=== PATIENT | female | born 1990 | race Caucasian/White ===

== ENCOUNTER 2017-12-10 07:22 | Inpatient (IN) | payer BC ==
--- NOTE | 2017-12-10 10:29 | HP ---
General Information - General Information Maternal Age: 27 Grav: 1 Para: 0 SAB: 0 IEA: 0 Estimated Due Date: 12/09/17 Determined By: LMP Maternal Blood Type and Rh: O Negative - Results this Serology/RPR Result: Non-Reactive Rubella Result: Immune HBsAg Result: Negative HIV Result: Negative GBS Culture Result: Negative Past Medical History Pertinent Past Medical History: See Records - depression/anxiety Pertinent Past Surgical History: None Pertinent Family History: Non-Contributory - Antepartal Records Antepartal Records: Reviewed, Uncomplicated Review of Systems Constitutional: Comfortable CV Complaint: No Respiratory: Shortness of Breath: No Gastrointestinal: No Nausea/Vomiting, Normal Bowel Movement Genitourinary: Leaking Fluid, No Dysuria, No Bleeding Musculoskeletal: Contractions - mild q5 Neurological: No Headache Movement: Normal Exam Allergies/Adverse Reactions: Allergies No Known Allergies Allergy (Verified 12/10/17 07:52) - Measurements Height: 5 ft 2 in Weight: 212 lb Weight in lbs: [phone] Body Mass Index (BMI): 38.7 Pre- Weight: 165 lb Weight Gained This : 47 lbs and 0 ozs - Exam Breast: Breast Exam Deferred Extremities: No Edema Heart: Normal Rhythm/Heart Sounds HEENT: No Significant Findings Rectal: Rectal Exam Deferred - Abdominal Exam Abdomen Exam: Non-Tender, Fundal Height Consistent with Dates - Ultrasound/Biophysical Profile Ultrasound Status: Not Done Targeted Exam Findings Presenting Part: Vertex Membrane Status: SROM Amniotic Fluid Evaluation: Gross Rupture, Clear Bleeding/Discharge: None
[2017-12-10 11:30] LABS: ABS Basophils 0 10^3/ul (0-0.2); ABS Eosinophils 0 10^3/ul (0-0.6); ABS Lymphocytes 1.4 10^3/ul (1.0-4.8); ABS Monocytes 0.5 10^3/ul (0-0.8); ABS Neutrophils 8.4 10^3/ul (1.5-7.7); ABS Nucleated RBC 0 10^3/ul; Eosinophil % 0.2 % (0-6); Hematocrit 38 % (35-47); Lymphocyte % 13.3 % (25-47); Mean Corpuscular HGB Conc 34 g/dl (31-36); Mean Corpuscular Hemoglobin 31 pg (27-31); Mean Corpuscular Volume 90 fL (80-97); Mean Platelet Volume 10.8 um3 (7.4-10.4); Nucleated Red Blood Cells % 0.1; Platelet Count 145 10^3/ul (150-450); Red Blood Count 4.24 10^6/ul (4.00-5.40); Red Cell Distribution Width 15 % (10.5-15); White Blood Count 10.4 10^3/ul (3.5-10.8)
[2017-12-10] MEDS: Oxytocin in LR* 20 UNITS/1,000 ML BAG IVPB SCH (14:31)
[2017-12-10] MEDS ORDERED: OBEPIDURAL* 250 ML EPIDURAL ONE (19:55)
[2017-12-10] MEDS ORDERED: fentaNYL* 50 MCG/ML 2 ML VIAL (100 MCG VIAL) ONE (20:05)
[2017-12-10] MEDS ORDERED: Sodium Citrate/Citric Acid* 15 ML UDC PO PRN (20:48)
[2017-12-10] MEDS ORDERED: Phenylephrine IV* 40 MCG/ML 10 ML SYRINGE IV PUSH PRN ×2 (20:48)
[2017-12-10] MEDS ORDERED: Famotidine TAB* 20 MG PO PRN (20:48)
[2017-12-10] MEDS ORDERED: OBEPIDURAL* 250 ML EPIDURAL SCH (21:00)
[2017-12-11] MEDS: Ondansetron ODT TAB* 4 MG PO PRN ×2 (05:38→21:55)
[2017-12-11] MEDS ORDERED: Lidocaine 1%* 5 ML VIAL ONE (05:48)
[2017-12-11] MEDS: Oxytocin in LR* 20 UNITS/1,000 ML BAG IVPB SCH (16:45)
[2017-12-12] MEDS ORDERED: Misoprostol TAB* 200 MCG PR ONE (05:03)
[2017-12-12] MEDS ORDERED: Glycerin ADULT SUPP PR PRN (05:03)
--- NOTE | 2017-12-12 05:52 | PROCNOTE ---
[facility] OB: Delivery Note - Delivery A Date of : 12/12/17 Time of : 03:51 [place] Weight at : 8 lb 15 oz Score 1 Minute: 8 Score 5 Minutes: 9 Gestational Age in Weeks and Days at Delivery: 40 Weeks and 3 Days Delivery Method: Low Vacuum Extraction, Vaginal Labor: Induced Amniotic Fluid: Clear Estimated Blood Loss: 400 Anesthesia/Analgesia: CEI for Labor Delivered By: Sonia Dennis - Nursery Level of Nursery: Regular/Bedside - Perineum Perineal Injury: Vaginal Laceration, 3rd Degree Extension - partial - Events Delivery Events of Note: Pitocin During Labor, Protracted/Long Labor, Post- Bleeding - Meds Given, Pushed > 3 Hours, ROM > 24 Hours - Additional Delivery Notes Additional Delivery Notes: Pt presented with PROM at 5am on 12/10. She was having irregular contractions but her cervix changed only minimally so eventually she was started on pitocin for labor augmentation. She slowly progressed and received an epidural. At one point this had to be replaced. She continued to progress, though very slowly to anterior lip. The lip easily reduced over the baby's head when she pushed so the pt began pushing. She pushed for over 3hrs and requested vacuum assistance with delivery. Risks were reviewed with the pt and when neonatology arrived the vacuum was attached and the pt continued pushing to bring the head to . The vacuum was removed twice but no pop-offs. The pt then continued to push to deliver the infant's head in MIKE position. Nuchal reduced x1 and a compound posterior hand was delivered with the shoulders and the rest of the body. Another nuchal cord reduced over the body. The baby was placed on mom's abdomen. After 1min the cord was clamped x2 and cut. The placenta delivered with gentle cord traction and fundal massage. 1 [id number] suture was placed to reapproximate the fibers of the rectal sphincter capsule. The second degree tear was then repaired in the usual fashion with 3-0 vicryl rapide. The pt had several gushes of blood during this time and therefore she received 800mcg of cytotec. By the end of the repair the fundus was firm and there was good hemostasis. Mom and baby stable.
[2017-12-12] MEDS: Dibucaine 1% 28.35 GM TUBE PR PRN (06:47)
[2017-12-12] MEDS: Ibuprofen TAB* 600 MG PO PRN ×3 (06:47→19:51)
[2017-12-12] MEDS: Witch Hazel PAD* JAR TOPICAL PRN (06:47)
[2017-12-12] MEDS: Docusate CAP* 100 MG PO SCH ×3 (08:41→19:51)
[2017-12-12] MEDS: Simethicone TAB* 80 MG TAB.CHEW PO SCH ×2 (08:42→12:30)
[2017-12-12 15:58] LABS: Hematocrit 28 % (35-47); Hemoglobin 9.6 g/dl (12.0-16.0); Mean Corpuscular HGB Conc 34 g/dl (31-36); Mean Corpuscular Hemoglobin 31 pg (27-31); Mean Corpuscular Volume 91 fL (80-97); Mean Platelet Volume 10.2 um3 (7.4-10.4); Platelet Count 147 10^3/ul (150-450); Red Blood Count 3.09 10^6/ul (4.00-5.40); Red Cell Distribution Width 16 % (10.5-15); White Blood Count 24.1 10^3/ul (3.5-10.8)
[2017-12-12 16:37] LABS: ABS Basophils 0.1 10^3/ul (0-0.2); ABS Eosinophils 0 10^3/ul (0-0.6); ABS Monocytes 1.6 10^3/ul (0-0.8); ABS Neutrophils 20.4 10^3/ul (1.5-7.7); ABS Nucleated RBC 0 10^3/ul; Eosinophil % 0.1 % (0-6); Lymphocyte % 8.3 % (25-47); Nucleated Red Blood Cells % 0.1
[2017-12-12] MEDS: Ferrous Gluconate TAB* 324 MG TAB PO SCH (20:01)
[2017-12-13] MEDS: Ibuprofen TAB* 600 MG PO PRN ×4 (02:13→20:44)
[2017-12-13] MEDS: Acetaminophen TAB* 325 MG PO PRN ×4 (02:13→17:52)
[2017-12-13 07:11] LABS: ABS Basophils 0.1 10^3/ul (0-0.2); ABS Eosinophils 0.1 10^3/ul (0-0.6); ABS Lymphocytes 2.6 10^3/ul (1.0-4.8); ABS Monocytes 1.2 10^3/ul (0-0.8); ABS Neutrophils 13.3 10^3/ul (1.5-7.7); ABS Nucleated RBC 0 10^3/ul; Eosinophil % 0.6 % (0-6); Hematocrit 27 % (35-47); Hemoglobin 8.9 g/dl (12.0-16.0); Lymphocyte % 14.9 % (25-47); Mean Corpuscular HGB Conc 33 g/dl (31-36); Mean Corpuscular Hemoglobin 30 pg (27-31); Mean Corpuscular Volume 91 fL (80-97); Mean Platelet Volume 10.2 um3 (7.4-10.4); Nucleated Red Blood Cells % 0.1; Platelet Count 147 10^3/ul (150-450); Red Blood Count 2.97 10^6/ul (4.00-5.40); Red Cell Distribution Width 16 % (10.5-15); White Blood Count 17.2 10^3/ul (3.5-10.8)
[2017-12-13] MEDS: Docusate CAP* 100 MG PO SCH ×3 (07:49→20:44)
[2017-12-13] MEDS: Ferrous Gluconate TAB* 324 MG TAB PO SCH ×2 (07:49→20:44)
[2017-12-13] MEDS ORDERED: RHO D Immune Globulin (HUMAN)* 300 MCG = 1,500 I.U. INJ IM ONE (14:01)
--- NOTE | 2017-12-13 20:55 | PTEDU ---
Patient Name: ANTONIA MONIQUE ANTONIA MONIQUE selected video: Follow Me Mum: [facility] to view on 12/13/2017 at 8:54:22 PM [id number]
[2017-12-14] MEDS: Ibuprofen TAB* 600 MG PO PRN ×3 (02:33→15:14)
[2017-12-14] MEDS: Acetaminophen TAB* 325 MG PO PRN ×4 (02:33→19:02)
[2017-12-14] MEDS: Docusate CAP* 100 MG PO SCH ×2 (08:05→15:14)
[2017-12-14] MEDS: Ferrous Gluconate TAB* 324 MG TAB PO SCH (08:06)
[2017-12-14 08:09] VITALS: BP 127/77
[2017-12-14] MEDS: Witch Hazel PAD* JAR TOPICAL PRN (19:02)
[2017-12-14] MEDS: Dibucaine 1% 28.35 GM TUBE PR PRN (19:02)
== END 2017-12-14 18:45 | disposition home or self-care (01) | DRG 542 ==
LOC: MCHOBOUT 07:22 → MCHOB 08:33
PROVIDERS: ADMIT Obstetrics & Gynecology; ATTEND Obstetrics & Gynecology
PROC: 10D07Z6 Extraction of Products of Conception, Vacuum, Via Natural or Artificial Opening (ICD-10-PCS; principal; 2017-12-12)
PROC: 0DQR0ZZ Repair Anal Sphincter, Open Approach (ICD-10-PCS; 2017-12-12)
DX: O48.0 Post-term pregnancy (principal); O70.20 Third degree perineal laceration during delivery, unspecified; O99.344 Other mental disorders complicating childbirth; F41.8 Other specified anxiety disorders; O69.81X0 Labor and delivery complicated by cord around neck, without compression, not applicable or unspecified; O32.6XX0 Maternal care for compound presentation, not applicable or unspecified; O90.81 Anemia of the puerperium; D64.9 Anemia, unspecified; Z3A.40 40 weeks gestation of pregnancy; Z37.0 Single live birth
CPT/HCPCS: 36415; 85025; 85461; 86850; 86900; 86901; A9270-GY; J2790; J3010

== ENCOUNTER 2021-01-07 23:06 | Inpatient (IN) ==
[2021-01-08 00:27] LABS: Urine Benzodiazepine Screen None Detected (None Detect); Urine Opiates Screen None Detected (None Detect)
[2021-01-08] MEDS ORDERED: Penicillin G Potassium IV 5,000,000 UNITS in NS 0.9% 100 ml BAG 100 ML IVPB ONE (00:42)
[2021-01-08] MEDS ORDERED: Buffered Lidocaine 1% SYRIN 1 ml INTRADERM ONE (00:42)
[2021-01-08] MEDS ORDERED: Lactated Ringers 1000 ml BAG 1,000 ML IV ONE ×2 (00:42→08:31)
[2021-01-08] MEDS ORDERED: Oxytocin in LR 20 UNITS/1,000 ML BAG IVPB SCH (01:00)
[2021-01-08] MEDS: Lactated Ringers 1000 ml BAG 1,000 ML IV SCH ×2 (01:08→07:48)
[2021-01-08 01:20] LABS: ABS Lymphocytes 1.4 10^3/ul (1.0-4.8); ABS Monocytes 0.6 10^3/ul (0-0.8); ABS Neutrophils 5.1 10^3/ul (1.5-7.7); Eosinophil % 0.3 %; Hematocrit 35 % (35-47); Hemoglobin 11.9 g/dL (12.0-16.0); Lymphocyte % 18.9 %; Mean Corpuscular HGB Conc 34 g/dL (31-36); Mean Corpuscular Hemoglobin 32 pg (27-31); Mean Corpuscular Volume 92 fL (80-97); Mean Platelet Volume 10.8 fL (7.4-10.4); Platelet Count 142 10^3/uL (150-450); Red Blood Count 3.78 10^6 /uL (3.70-4.87); Red Cell Distribution Width 15 % (10-15); White Blood Count 7.2 10^3/uL (3.5-10.8)
[2021-01-08 01:47] LABS: Rapid COVID-19 Molecular Undetected (Undetected)
[2021-01-08] MEDS: Penicillin G Potassium IV 3,000,000 UNITS in NS 0.9% 100 ml BAG 100 ML IVPB SCH ×3 (05:08→13:15)
[2021-01-08] MEDS ORDERED: Ondansetron 4 mg VIAL 2 MG/ML 2 ml VIAL IV PRN ×2 (06:13→14:42)
[2021-01-08] MEDS ORDERED: OBEPIDURAL 250 ML EPIDURAL ONE (07:24)
[2021-01-08] MEDS ORDERED: Lactated Ringers 1000 ml BAG 500 ML IV PRN ×2 (08:31)
[2021-01-08] MEDS ORDERED: Phenylephrine 40 mcg/mL 10mL (400mcg) SYRINGE IV PUSH PRN ×2 (08:31)
[2021-01-08] MEDS ORDERED: Sodium Citrate/Citric Acid LIQ 15 ML UDC PO PRN (08:31)
[2021-01-08] MEDS ORDERED: Bupivacaine 0.25% SDV PF 10 ML VIAL INJ ONE (08:58)
[2021-01-08] MEDS ORDERED: Lactated Ringers 1000 ml BAG 1,000 ML IV SCH ×2 (09:00→16:00)
[2021-01-08] MEDS ORDERED: OBEPIDURAL 250 ML EPIDURAL SCH (09:00)
[2021-01-08 09:37] LABS: Urine Appearance Clear; Urine Bilirubin Negative (Negative); Urine Blood 1+ (Negative); Urine Color Straw; Urine Glucose Negative (Negative); Urine Ketones Negative (Negative); Urine Nitrite Negative (Negative); Urine Protein Negative (Negative); Urine Specific Gravity 1.005 (1.002-1.030); Urine Urobilinogen Negative (Negative)
[2021-01-08 09:40] LABS: Urine Bacteria Absent (Absent); Urine Red Blood Cell Absent (Absent); Urine Squamous Epithelial Cell Present (Absent); Urine White Blood Cell Absent (Absent)
[2021-01-08] MEDS ORDERED: ceFOXitin 2 GM IVPREMIX 2 GM/50 ML BAG IVPB ONE (10:58)
[2021-01-08] MEDS ORDERED: Chloroprocaine 3% 20 ml VIAL ONE (12:32)
[2021-01-08] MEDS ORDERED: Oxytocin 10 UNITS/ML 1 ML VIAL ONE (12:32)
[2021-01-08] MEDS ORDERED: Bupivacaine 0.5% SDV PF 30ML VIAL ONE (13:15)
[2021-01-08] MEDS ORDERED: Dexamethasone IV 4 MG/ML VIAL 1 ml VIAL ONE (14:02)
[2021-01-08] MEDS ORDERED: Ondansetron 4 mg VIAL 2 MG/ML 2 ml VIAL ONE ×2 (14:02→14:18)
[2021-01-08] MEDS ORDERED: diPHENhydraMINE IV 50 MG/ML 1 ml VIAL (BENADRYL) ONE (14:18)
[2021-01-08] MEDS ORDERED: Morphine PF AMP (0.5MG/ML) 5 MG/10 ML AMP ONE (14:27)
[2021-01-08] MEDS ORDERED: Naloxone 0.4 mg VIAL 0.4 mg/ml 1 ml VIAL IV PRN ×2 (14:38→14:42)
[2021-01-08] MEDS ORDERED: Acetaminophen IV 1 GM/100ML 100 ML IV ONE (14:38)
[2021-01-08] MEDS ORDERED: Naloxone 4 mg VIAL (10 ml) 2 MG in NS 0.9% 250 ml 250 ML IV PRN (14:42)
[2021-01-08] MEDS ORDERED: diPHENhydraMINE IV 50 MG/ML 1 ml VIAL (BENADRYL) IV PRN (14:42)
[2021-01-08] MEDS ORDERED: DiMENhydriNATE IV 50 mg/ml 1 ml VIAL IV PUSH PRN (14:42)
[2021-01-08] MEDS ORDERED: Scopolamine PATCH Remove NOTE PATCH OFF PRN (14:42)
[2021-01-08] MEDS ORDERED: Witch Hazel PAD JAR TOPICAL PRN (15:06)
[2021-01-08] MEDS ORDERED: Glycerin ADULT 2.4 gm SUPP PR PRN (15:06)
[2021-01-08] MEDS: fentaNYL 100 mcg/2 ml 50 MCG/ML VIAL IV PRN ×2 (16:20→16:44)
[2021-01-08] MEDS: HYDROcodone/ACETAMIN 5/325 mg TAB PO PRN ×2 (18:41→21:54)
[2021-01-09] MEDS: HYDROcodone/ACETAMIN 5/325 mg TAB PO PRN ×2 (00:32→03:25)
[2021-01-09 07:24] LABS: ABS Basophils 0.1 10^3/ul (0-0.2); ABS Lymphocytes 1.7 10^3/ul (1.0-4.8); ABS Monocytes 0.7 10^3/ul (0-0.8); ABS Neutrophils 8.9 10^3/ul (1.5-7.7); Eosinophil % 0.2 %; Hematocrit 31 % (35-47); Hemoglobin 10.3 g/dL (12.0-16.0); Lymphocyte % 14.7 %; Mean Corpuscular HGB Conc 34 g/dL (31-36); Mean Corpuscular Hemoglobin 31 pg (27-31); Mean Corpuscular Volume 93 fL (80-97); Mean Platelet Volume 10.6 fL (7.4-10.4); Platelet Count 152 10^3/uL (150-450); Red Cell Distribution Width 15 % (10-15); White Blood Count 11.3 10^3/uL (3.5-10.8)
[2021-01-10] MEDS ORDERED: RHO D Immune Globulin (HUMAN) 300 MCG = 1,500 I.U. INJ IM ONE (15:08)
[2021-01-11 08:05] VITALS: BP 129/70
== END 2021-01-11 13:05 | disposition home or self-care (01) | DRG 540 ==
LOC: MCHOBOUT 23:06 → MCHOB 23:44
PROVIDERS: ADMIT Obstetrics & Gynecology; ATTEND Obstetrics & Gynecology